=== PATIENT | male | born 2000 | race Hispanic/Latino ===

== ENCOUNTER 2022-06-04 22:38 | Emergency (ER) | payer OTHER ==
[~2022-06-04] VITALS: Ht 180.3 cm; Wt 126.1 kg
[2022-06-05] MEDS ORDERED: KETOROLAC 30MG VIAL (30MG/ML) IM ONE
[2022-06-05] MEDS ORDERED: SOLU-MEDROL 125MG VIAL IM ONE
[2022-06-05] MEDS ORDERED: METH4TAB3 PO (00:12)
[2022-06-05 00:16] VITALS: BP 144/107
== END 2022-06-05 00:42 | disposition home or self-care (01) ==
LOC: EDH 22:38
DX: S29.011A Strain of muscle and tendon of front wall of thorax, initial encounter (principal); M94.0 Chondrocostal junction syndrome [Tietze]; X58.XXXA Exposure to other specified factors, initial encounter; Y93.89 Activity, other specified; Y92.89 Other specified places as the place of occurrence of the external cause; Y99.8 Other external cause status
CPT/HCPCS: 99284; 93005; 96372; J2930; J1885